=== PATIENT | male | born 1975 ===

== ENCOUNTER 2018-01-15 05:07 | Inpatient (IN) | payer OTHER ==
--- NOTE | 2018-01-15 06:30 | XRay Report ---
FINAL REPORT PROCEDURE: XR KNEE 1-2V RT TECHNIQUE: RIGHT knee radiograph, single view. HISTORY: IMPAIRED GAIT COMPARISON: No prior studies are available for comparison. FINDINGS: Fracture (s) and/or Dislocation(s): None . Joint space(s): Normal. Soft tissues: There is prepatellar and pretibial soft tissue swelling. There is no joint effusion. Bone mineralization: Normal. Foreign bodies: None. IMPRESSION: There is no acute bony abnormality.There is prepatellar and pretibial soft tissue swelling. There is no joint effusion.
[2018-01-15] MEDS ORDERED: NACL 0.9% 1000 ML 1,000 ML IV ONE ×2 (07:13→12:17)
[2018-01-15] MEDS ORDERED: CLEOCIN 900 MG/50 mL 900 MG/50 ML BAG IV ONE (07:13)
[2018-01-15 07:34] LABS: Basophils % (Auto) 0.3 % (0.0-1.8); Eosinophils # (Auto) 0.1 K/mm3 (0.0-0.4); Eosinophils % (Auto) 0.9 % (0.0-4.3); Hematocrit 43.6 % (35.5-45.6); Hemoglobin 14.6 gm/dl (11.8-15.2); Mean Corpuscular HGB Conc 34 % (32-34); Mean Corpuscular Hemoglobin 32 pg (28-32); Mean Corpuscular Volume 96 fl (84-94); Monocytes # (Auto) 1.1 K/mm3 (0.0-0.8); Monocytes % (Auto) 9.5 % (0.0-7.3); Platelet Count 269 K/mm3 (140-440); Red Blood Count 4.53 M/mm3 (3.65-5.03); Red Cell Distribution Width 13.6 % (13.2-15.2)
[2018-01-15 07:45] LABS: BUN/Creatinine Ratio 26; Blood Urea Nitrogen 18 mg/dL (9-20); Hemolysis Index 9
--- NOTE | 2018-01-15 09:15 | Cat Scan Report ---
CT LOWER EXTREMITY RIGHT WITH CONTRAST HISTORY: Right knee pain and swelling. TECHNIQUE: Helical CT and 1.25 mm intervals following IV contrast was performed through the right knee. FINDINGS: Moderate to severe soft tissue swelling is identified anterior to the patella and patellar tendon. There is suggestion of early abscess formation in this area measuring up to approximately 1.6 x 0.5 x 1.5 cm. There appears to be a small sinus tract extending to the skin surface. Please correlate with the patient. There is normal bone mineralization. Normal joint space. No evidence for fracture, bone lesion or bony destruction. No significant degenerative changes. No joint effusion. The patellar tendon is unremarkable. IMPRESSION: Prepatellar cellulitis with possible early subcutaneous abscess formation as described.
[2018-01-15] MEDS ORDERED: BOOSTRIX IM ONE (09:27)
[2018-01-15] MEDS ORDERED: ZOFRAN IV ONE (09:27)
[2018-01-15] MEDS ORDERED: MORPHINE IV NR (09:27)
--- NOTE | 2018-01-15 09:34 | Emergency Department Report ---
- General Chief complaint: Skin/Abscess/Foreign Body Stated complaint: RIGHT KNEE WOUND Time Seen by Provider: 01/15/18 07:11 Source: patient Mode of arrival: Ambulatory Limitations: No Limitations - History of Present Illness Initial comments: This is a 42-year-old male nontoxic in appearance with no signs of distress presented to the ER with right knee pain and swelling with slight purulent drainage. Patient stated that about a week ago he was working under and sustaining an injury but never came to the ER for follow-up. Patient stated that the area of knee has been increase in pain and decreased range of motion. Patient denies any other trauma. Patient denies any fever, chills, nausea, vomiting, chest pain, shortness of breath, headache or stiff neck. Patient denies any allergies or significant past medical history. Patient stated that he is not up-to-date with tetanus. MD complaint: abscess/boil, other (cellulitis) -: week(s) (1) Tetanus Up to Date: no Location: [facility] Severity: mild Severity scale (0 -10): 8 Quality: aching Improves with: immobilization Worsens with: movement Associated symptoms: denies other symptoms Treatments Prior to Arrival: none - Related Data Home Medications Medication Instructions Recorded Confirmed Last Taken No Known Home Medications [No 01/15/18 01/15/18 Unknown Reported Home Medications] Allergies Allergy/AdvReac Type Severity Reaction Status Date / Time No Known Allergies Allergy Unverified 01/15/18 05:23 Abscess Boil HPI - HPI Chief Complaint: Skin/Abscess/Foreign Body Stated Complaint: RIGHT KNEE WOUND Time Seen by Provider: 01/15/18 07:11 Home Medications: Home Medications Medication Instructions Recorded Confirmed Last Taken No Known Home Medications [No 01/15/18 01/15/18 Unknown Reported Home Medications] Allergies/Adverse Reactions: Allergies Allergy/AdvReac Type Severity Reaction Status Date / Time No Known Allergies Allergy Unverified 01/15/18 05:23 ED Review of Systems ROS: Stated complaint: RIGHT KNEE WOUND Other details as noted in HPI Constitutional: denies: chills, fever Eyes: denies: eye pain, eye discharge, vision change ENT: denies: ear pain, throat pain Respiratory: denies: cough, shortness of breath, wheezing Cardiovascular: denies: chest pain, palpitations Endocrine: no symptoms reported Gastrointestinal: denies: abdominal pain, nausea, diarrhea Genitourinary: denies: urgency, dysuria Musculoskeletal: denies: back pain, joint swelling, arthralgia Skin: denies: rash, lesions Neurological: denies: headache, weakness, paresthesias Psychiatric: denies: anxiety, depression Hematological/Lymphatic: denies: easy bleeding, easy bruising ED Past Medical Hx - Surgical History Additional Surgical History: RIGHT WRIST SURGERY 2007 - Social History Smoking Status: Never Smoker Substance Use Type: Alcohol - Medications Home Medications: Home Medications Medication Instructions Recorded Confirmed Last Taken Type No Known Home Medications [No 01/15/18 01/15/18 Unknown History Reported Home Medications] ED Physical Exam - General Limitations: No Limitations General appearance: alert, in no apparent distress - Head Head exam: Present: atraumatic, normocephalic - Eye Eye exam: Present: normal appearance - ENT ENT exam: Present: mucous membranes moist - Neck Neck exam: Present: normal inspection - Respiratory Respiratory exam: Present: normal lung sounds bilaterally. Absent: respiratory distress - Cardiovascular Cardiovascular Exam: Present: regular rate, normal rhythm. Absent: systolic murmur, diastolic murmur, rubs, gallop - GI/Abdominal GI/Abdominal exam: Present: soft, normal bowel sounds - Rectal Rectal exam: Present: deferred - Extremities Exam Extremities exam: Present: normal inspection, full ROM, tenderness, normal capillary refill, joint swelling. Absent: calf tenderness - Expanded Lower Extremity Exam Right Hip exam: Present: normal inspection, full ROM. Absent: tenderness, swelling Upper Leg exam: Present: normal inspection, full ROM. Absent: tenderness, swelling Knee exam: Present: normal inspection, tenderness, swelling, erythema, full knee extension. Absent: full ROM, abrasion, laceration, ecchymosis, deformity, crepidus, dislocation, effusion, pain w/ pronation/supination, posterior draw sign, pain/laxity with valgus, pain/laxity with varus Lower Leg exam: Present: normal inspection, full ROM. Absent: tenderness, swelling Ankle exam: Present: normal inspection, full ROM. Absent: tenderness, swelling Foot/Toe exam: Present: normal inspection, full ROM. Absent: tenderness, swelling Neuro vascular tendon exam: Present: no vascular compromise. Absent: pulse deficit, abnormal cap refill, motor deficit, sensory deficit, tendon deficit, extremity cold to touch, pallor, abnormal 2-point discrimination, decreased fine /light touch, foot drop, peroneal nerve deficit, significant pain with passive ROM of distal joint Gait: Positive: observed and limited by pain - Back Exam Back exam: Present: normal inspection, full ROM - Neurological Exam Neurological exam: Present: alert, oriented X3, normal gait - Psychiatric Psychiatric exam: Present: normal affect, normal mood - Skin Skin exam: Present: warm, dry, intact, normal color. Absent: rash ED Course Vital Signs 01/15/18 01/15/18 05:15 09:54 Temperature 98.5 F Pulse Rate 73 Respiratory 16 16 Rate Blood Pressure 140/89 O2 Sat by Pulse 97 Oximetry - Reevaluation(s) Reevaluation #1: 01/15/18 09:31 Patient is speaking in full sentences with no signs of distress noted. ED Medical Decision Making - Lab Data Result diagrams: 01/15/18 07:23 01/15/18 07:23 - Medical Decision Making This is a 42-year-old male that presents with right knee cellulitis with possible abscess formation. Patient was stable was examined by me. CT scan of right lower extremity obtained and dictated by Dr. Bautista with prepatellar cellulitis with possible early subcutaneous abscess formation. Labs obtained. Vital signs are stable. The patient with clindamycin IV. Patient will be consulted with Dr. Pruitt for further evaluation and treatment. Patient will be admitted with hospitalist Dr. Lizarraga. At time of admission, the patient does not seem toxic or ill in appearance. No acute signs of distress noted. Patient agrees to admission treatment plan of care. No further questions noted by the patient. Critical care attestation.: If time is entered above; I have spent that time in minutes in the direct care of this critically ill patient, excluding procedure time. ED Disposition Clinical Impression: Cellulitis of right knee Disposition: OP ADMIT IP TO THIS HOSP Is pt being admited?: Yes Condition: Stable Referrals: PRIMARY CARE, [Primary Care Provider] - 3-5 Days
[2018-01-15] MEDS ORDERED: MORPHINE IV ONE ×2 (09:43→14:57)
[2018-01-15] MEDS ORDERED: DILAUDID IV ONE (14:56)
[2018-01-15] MEDS ORDERED: MORPHINE ONE (14:57)
[2018-01-15] MEDS ORDERED: SODIUM CHLORIDE FLUSH SYRINGE 10 ML IV PRN (20:15)
[2018-01-15] MEDS ORDERED: ZOFRAN IV PRN (20:15)
[2018-01-15] MEDS ORDERED: PERCOCET 5/325 PO PRN (20:15)
[2018-01-15] MEDS ORDERED: TYLENOL PO PRN (20:15)
--- NOTE | 2018-01-15 20:15 | Event Note ---
Date: 01/15/18 See dictated H/p in reports Cellulitis Rt Knee IV Abx Ortho consult
--- NOTE | 2018-01-15 20:26 | Consultation ---
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 Medications and Allergies Allergies Allergy/AdvReac Type Severity Reaction Status Date / Time No Known Allergies Allergy Unverified 01/15/18 05:23 Home Medications Medication Instructions Recorded Confirmed Last Taken Type No Known Home Medications [No 01/15/18 01/15/18 Unknown History Reported Home Medications] Active Meds: Active Medications Acetaminophen (Tylenol) 650 mg PO Q4H PRN PRN Reason: Pain MILD(1-3)/Fever >100.5/GONZALES Ampicillin Sodium/Sulbactam Sodium (Unasyn/Ns 3 Gm/100 Ml) 3 gm in 100 mls @ 100 mls/hr IV Q6HR HIEU; Protocol Ondansetron HCl (Zofran) 4 mg IV Q8H PRN PRN Reason: Nausea And Vomiting Oxycodone/Acetaminophen (Percocet 5/325) 1 tab PO Q6H PRN PRN Reason: Pain, Moderate (4-6) Sodium Chloride (Sodium Chloride Flush Syringe 10 Ml) 10 ml IV BID HIEU Sodium Chloride (Sodium Chloride Flush Syringe 10 Ml) 10 ml IV PRN PRN PRN Reason: LINE FLUSH Vancomycin HCl (Vancomycin Pharmacy To Dose) 1 each IV PKCONSULT HIEU; Protocol Physical Examination - Physical exam Narrative exam: Right knee - +erythema over patellar region, no fluctulence palpated small amount of drainage noted at pre-patellar bursa, good passive ROM at knee joint Eyes: PERRL ENT: Positive: clear oral mucosa Respiratory effort: normal Respiratory: bilateral: CTA Rhythm: regular Heart Sounds: Positive: S1 & S2 General gastrointestinal: Positive: soft, non-tender, non-distended, normal bowel sounds Integumentary: clear, warm, dry Neurologic: Positive: CNII-XII intact, moves all extremities, gait normal. Negative: focal deficits - Cervical Spine Neck pain: none Tenderness with palpation: none Full ROM: yes ROM: flexion: normal ROM: extension: normal ROM: rotation right: normal ROM: rotation left: normal ROM: lateral flexion right: normal ROM: lateral flexion left: normal - Lumbar Spine Back pain: none Tenderness with palpation: none Appearance: normal Full ROM: yes ROM: flexion: normal ROM: extension: normal ROM: rotation right: normal ROM: rotation left: normal ROM: lateral flexion right: normal ROM: lateral flexion left: normal Assessment and Plan infected pre-patellar bursitis with overlying cellulitis continue IVAB and observation, doubt if I&D need at this point
[2018-01-15] MEDS ORDERED: VANCOMYCIN PHARMACY TO DOSE IV SCH (21:00)
[2018-01-15] MEDS: PERCOCET 5/325 PO PRN (21:45)
[2018-01-15] MEDS: UNASYN/NS 3 GM/100 ML 3 GM/100 ML BAG IV SCH (21:47)
[2018-01-15] MEDS ORDERED: VANCOMYCIN 1,750 MG in NACL 0.9% 500 ML 500 ML IV ONE (22:00)
[2018-01-15] MEDS: SODIUM CHLORIDE FLUSH SYRINGE 10 ML IV SCH (23:32)
[2018-01-16] MEDS: UNASYN/NS 3 GM/100 ML 3 GM/100 ML BAG IV SCH ×4 (00:59→17:29)
[2018-01-16 05:50] LABS: Basophils % (Auto) 0.3 % (0.0-1.8); Eosinophils # (Auto) 0.1 K/mm3 (0.0-0.4); Eosinophils % (Auto) 1.6 % (0.0-4.3); Hematocrit 41.5 % (35.5-45.6); Hemoglobin 14.2 gm/dl (11.8-15.2); Lymphocytes # (Auto) 1.9 K/mm3 (1.2-5.4); Lymphocytes % (Auto) 22.8 % (13.4-35.0); Mean Corpuscular HGB Conc 34 % (32-34); Mean Corpuscular Hemoglobin 33 pg (28-32); Mean Corpuscular Volume 96 fl (84-94); Monocytes % (Auto) 12.2 % (0.0-7.3); Platelet Count 267 K/mm3 (140-440); Red Blood Count 4.33 M/mm3 (3.65-5.03); Red Cell Distribution Width 13.4 % (13.2-15.2)
[2018-01-16 06:08] LABS: Alanine Aminotransferase 57 units/L (7-56); Albumin 3.5 g/dL (3.9-5); BUN/Creatinine Ratio 13; Blood Urea Nitrogen 10 mg/dL (9-20); Calcium 8.8 mg/dL (8.4-10.2); Hemolysis Index 4
--- NOTE | 2018-01-16 08:47 | History and Physical Report ---
CHIEF COMPLAINT: Right knee pain and swelling for 4 days. HISTORY OF PRESENT ILLNESS: A 42-year-old male with no significant past medical history, comes in for right knee swelling and slight discharge from the right knee swelling. 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 Scraped his right knee and since then, the swelling of the knee has progressively increased and more painful. Slight discharge present. It is not clear whether it is pus or serous discharge. Pain is about 8 on a scale of 1-10. PAST MEDICAL HISTORY: None. PAST SURGICAL HISTORY: None except for right wrist surgery in 2007. SOCIAL HISTORY: Does not smoke. Alcohol occasionally. FAMILY HISTORY: No hypertension, no diabetes. REVIEW OF SYSTEMS: Significant for right knee swelling and pain. Otherwise, review of systems negative. PHYSICAL EXAMINATION: GENERAL: Young male, cooperative during examination. VITAL SIGNS: Blood pressure is 134/84, temperature is 98.4, pulse is 70, sats are 99%. HEENT: Unremarkable. Pupils equal and reactive. NECK: Supple, no lymphadenopathy, no thyromegaly. LUNGS: Clear to auscultation and percussion. Good air entry. CARDIOVASCULAR: S1, S2 heard. No gallop, no murmur, no rub. Apical impulse in left fifth intercostal space and midclavicular line. ABDOMEN: Soft and benign. No hepatosplenomegaly, no guarding, no rigidity. Hernial orifices are normal. EXTREMITIES: Right knee swollen and tender to touch. Muscle swelling about 10 cm x 5 cm. Small open wound present. No discharge present. SKIN: Normal. CENTRAL NERVOUS SYSTEM: Alert and oriented x 4, nonfocal exam. LABORATORY DATA: Significant for white count of 12,000, H and H is 14.6 and 43.6. Sodium is slightly low at 136, BUN and creatinine is 18 and 0.7, glucose is 160. A1c 6.0. ASSESSMENT AND PLAN: 1. Right knee cellulitis. The patient initiated on IV Zosyn and IV vancomycin. Dr. Pruitt Orthopedics consulted. The patient may not need I and D at this point 2. Hyperglycemia, borderline diabetes. The patient may be discharged on metformin 500 mg b.i.d. 3. Hyponatremia, mild. Should correct with IV fluids. 4. Deep venous thrombosis prophylaxis, Lovenox 40 mg subcutaneous daily. JOB# [id number] ALLA/CIARRA
--- NOTE | 2018-01-16 08:54 | Progress Note ---
Assessment and Plan Assessment and plan: Cellulitis right knee. Admitted to med/surg floor. Continue Unasyn and Vancomycin patient evaluated by Dr. Pruitt Pre-patellar bursitis. Leukocytosis due to cellulitis. Full code status. History Interval history: right knee pain Hospitalist Physical - Physical exam Narrative exam: Constitutional; Not in acute distress, ill looking, HEENT: Atraumatic, normocephalic Neck: supple, no lymphadenopathy, JVD Lungs: Clear to auscultation, bilaterally, no wheeze CVS; S1-S2 regular, no murmurs, rubs or gallop, Abdomen; soft, non-tender, mild distended,bowel sounds are normal, Musculoskeletal; Erythema, wound right knee, no clubbing, no cyanosis, [employer]HOU[employer]: awake, alert,oriented x3, no focal neurological signs - Constitutional Vitals: Temp Pulse Resp BP Pulse Ox 98.7 F 67 16 126/78 98 01/16/18 05:56 01/16/18 05:56 01/16/18 05:56 01/16/18 05:56 01/16/18 05:56 Results - Labs CBC & Chem 7: 01/16/18 05:17 01/16/18 05:17 Labs: Laboratory Last Values WBC 8.5 K/mm3 (4.5-11.0) 01/16/18 05:17 RBC 4.33 M/mm3 (3.65-5.03) 01/16/18 05:17 Hgb 14.2 gm/dl (11.8-15.2) 01/16/18 05:17 Hct 41.5 % (35.5-45.6) 01/16/18 05:17 MCV 96 fl (84-94) H 01/16/18 05:17 MCH 33 pg (28-32) H 01/16/18 05:17 MCHC 34 % (32-34) 01/16/18 05:17 RDW 13.4 % (13.2-15.2) 01/16/18 05:17 Plt Count 267 K/mm3 (140-440) 01/16/18 05:17 Lymph % (Auto) 22.8 % (13.4-35.0) 01/16/18 05:17 [place] % (Auto) 12.2 % (0.0-7.3) H 01/16/18 05:17 Eos % (Auto) 1.6 % (0.0-4.3) 01/16/18 05:17 Baso % (Auto) 0.3 % (0.0-1.8) 01/16/18 05:17 Lymph # 1.9 K/mm3 (1.2-5.4) 01/16/18 05:17 [place] # 1.0 K/mm3 (0.0-0.8) H 01/16/18 05:17 Eos # 0.1 K/mm3 (0.0-0.4) 01/16/18 05:17 Baso # 0.0 K/mm3 (0.0-0.1) 01/16/18 05:17 Seg Neutrophils % 63.1 % (40.0-70.0) 01/16/18 05:17 Seg Neutrophils # 5.4 K/mm3 (1.8-7.7) 01/16/18 05:17 Sodium 139 mmol/L (137-145) 01/16/18 05:17 Potassium 4.9 mmol/L (3.6-5.0) 01/16/18 05:17 Chloride 99.5 mmol/L (98-107) 01/16/18 05:17 Carbon Dioxide 26 mmol/L (22-30) 01/16/18 05:17 Anion Gap 18 mmol/L 01/16/18 05:17 BUN 10 mg/dL (9-20) 01/16/18 05:17 Creatinine 0.8 mg/dL (0.8-1.5) 01/16/18 05:17 Estimated GFR > 60 ml/min 01/16/18 05:17 BUN/Creatinine Ratio 13 % 01/16/18 05:17 Glucose 116 mg/dL (75-100) H 01/16/18 05:17 Hemoglobin A1c 6.0 % (4-6) 01/15/18 21:03 Calcium 8.8 mg/dL (8.4-10.2) 01/16/18 05:17 Total Bilirubin 0.60 mg/dL (0.1-1.2) 01/16/18 05:17 AST 36 units/L (5-40) 01/16/18 05:17 ALT 57 units/L (7-56) H 01/16/18 05:17 Alkaline Phosphatase 107 units/L (35-129) 01/16/18 05:17 Total Protein 7.3 g/dL (6.3-8.2) 01/16/18 05:17 Albumin 3.5 g/dL (3.9-5) L 01/16/18 05:17 Albumin/Globulin Ratio 0.9 % 01/16/18 05:17
[2018-01-16] MEDS ORDERED: NACL 0.9% 1000 ML 1,000 ML IV SCH (09:00)
[2018-01-16] MEDS: VANCOMYCIN 1,500 MG in NACL 0.9% 500 ML 500 ML IV SCH ×2 (10:17→21:43)
[2018-01-16] MEDS: SODIUM CHLORIDE FLUSH SYRINGE 10 ML IV SCH ×2 (10:18→21:48)
[2018-01-16] MEDS ORDERED: LOVENOX SUB-Q SCH (22:00)
[2018-01-16] MEDS: PERCOCET 5/325 PO PRN (22:25)
[2018-01-17] MEDS: UNASYN/NS 3 GM/100 ML 3 GM/100 ML BAG IV SCH ×3 (00:44→13:19)
[2018-01-17] MEDS: VANCOMYCIN 1,500 MG in NACL 0.9% 500 ML 500 ML IV SCH (10:00)
[2018-01-17] MEDS: SODIUM CHLORIDE FLUSH SYRINGE 10 ML IV SCH (10:00)
[2018-01-17] MEDS: PERCOCET 5/325 PO PRN (11:49)
[2018-01-17 12:25] VITALS: BP 124/73
--- NOTE | 2018-01-17 12:51 | Discharge Summary ---
Providers - Providers Date of Admission: 01/15/18 14:16 Date of discharge: 01/17/18 Attending physician: MATHEW JEWELL 01/15/18 14:16 Consult to Physician [CONS] Stat Comment: Consulting Provider: ANGELA SEVILLA Physician Instructions: Reason For Exam: cellulitis of right knee pain 01/16/18 08:50 Consult to Wound/ET Nurse [CONS] Urgent Reason For Exam: wound eval Primary care physician: SHOT EXAMINER Hospitalization Condition: Fair Core Measure Documentation - Palliative Care Palliative Care/ Comfort Measures: Not Applicable - Core Measures Any of the following diagnoses?: none Exam - Constitutional Vitals: Temp Pulse Resp BP Pulse Ox 98.1 F 76 18 124/73 94 01/17/18 12:00 01/17/18 12:00 01/17/18 12:00 01/17/18 12:00 01/17/18 12:00 Plan Activity: advance as tolerated Diet: low fat, low cholesterol, low salt Additional Instructions: 1.Follow up with PCP or [facility] in 1 week. 2.Follow up with Marco Camacho in 1 week Follow up with: PRIMARY CAREMD [Primary Care Provider] - 3-5 Days
--- NOTE | 2018-01-17 17:05 | Progress Note ---
Assessment and Plan infected pre-patellar bursitis with overlying cellulitis continue IVAB and observation, doubt if I&D need at this point Subjective Date of service: 01/17/18 Interval history: Less pain today, less pain noted from patient Objective Vital signs: Vital Signs - 12hr 01/17/18 01/17/18 01/17/18 05:59 11:49 12:00 Temperature 98.0 F 98.1 F Pulse Rate 53 L 76 Respiratory 18 20 18 Rate Blood Pressure 134/86 Blood Pressure 124/73 [Left] O2 Sat by Pulse 98 94 Oximetry Narrative Exam: Right knee decreased redness mild to moderate drainage full active range of motion - Labs CBC & BMP: 01/16/18 05:17 01/16/18 05:17
== END 2018-01-17 18:30 | disposition home or self-care (01) | DRG 558 ==
LOC: ED 05:07 → 3A 14:16
PROVIDERS: ADMIT Internal Medicine; ATTEND Internal Medicine
DX: M71.161 Other infective bursitis, right knee (principal); L03.115 Cellulitis of right lower limb; E87.1 Hypo-osmolality and hyponatremia; D72.829 Elevated white blood cell count, unspecified; R73.9 Hyperglycemia, unspecified; Z72.89 Other problems related to lifestyle
CPT/HCPCS: 36415; 80048; 80053; 83036; 85025; 90715; J0295; J1650; J2270; J2405; J3370; J7030; J7040; Q9967